=== PATIENT | female | born 2000 | race African-American/Black ===

== ENCOUNTER → 2024-12-25 08:19 | Outpatient (BNVA) | payer OTHER, SELFPAY | PROVIDERS: Visit Provider Internal Medicine | DX: S93.402A Sprain of unspecified ligament of left ankle, initial encounter (principal); S70.11XA Contusion of right thigh, initial encounter; W10.8XXA Fall (on) (from) other stairs and steps, initial encounter | CPT/HCPCS: 73610; 73630; 99202 ==

== ENCOUNTER → 2024-12-31 12:15 | Outpatient (BNVA) | payer OTHER, SELFPAY | PROVIDERS: Visit Provider Physician Assistant Medical | DX: S93.402A Sprain of unspecified ligament of left ankle, initial encounter (principal); S70.11XA Contusion of right thigh, initial encounter; W10.8XXA Fall (on) (from) other stairs and steps, initial encounter | CPT/HCPCS: 99213 ==

== ENCOUNTER → 2025-01-13 13:30 | Outpatient (BNVA) | payer OTHER, SELFPAY | PROVIDERS: Visit Provider Physician Assistant Medical | DX: S93.402D Sprain of unspecified ligament of left ankle, subsequent encounter (principal); S70.11XD Contusion of right thigh, subsequent encounter; W10.8XXD Fall (on) (from) other stairs and steps, subsequent encounter | CPT/HCPCS: 99213 ==

== ENCOUNTER 2025-02-12 09:20 | Outpatient (AMB) | payer OTHER, SELFPAY ==
--- NOTE | 2025-02-12 09:21 | A.OFFVIS_ITS ---
Intake Visit Reasons: FC-Lt ankle sprain DOI: 12/23/24 Intake Note: Desiree is a 24 year old female who presents today for an ER follow up of left ankle sprain, DOI 12/23/24. Patient was seen at work connection status post fall down 2 steps at work. She was referred to physical therapy but states that she has not started. At her appointment with the work connection they gave her a ankle air cast but she did not feel comfortable enough to continue use. Patient states that she has a constant numbness and tingling and the pain is radiating up into the calf. Patient reports that she was given NSAIDs but no relief. Allergies No Known Allergies Allergy (Verified 02/12/25 09:27) Medication List - Last Reconciled 02/12/25 by Bennie Beard PA-C ibuprofen 800 mg PO TID PRN HPI HPI FC-Lt ankle sprain DOI: 12/23/24: Details: 24 yo female presents tot he office today for an injury she sustained to the left ankle while at work on 12/23/2024 while she was walking down the stairs and fell. She was seen at the work connection where x-rays were obtained which were negative for a fracture. She was placed in an Aircast and referred to ortho for eval. She states she wore the Aircast for approximately 1 or 2 days and removed it. She has not done physical therapy. 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 She continues to have discomfort especially with ambulation. She feels as though the ankle is unstable. Review of Systems Const All systems reviewed & are unremarkable except as noted in HPI and below Physical Exam Const General: cooperative and no acute distress Orientation/consciousness: patient oriented x3 Resp Effort & Inspection: normal respiratory effort and able to speak in complete sentences Cardio Peripheral pulses: Peripheral pulses 2+ throughout Neuro General: patient oriented x3 Extrem Other: Inspection. No significant swelling. She has tenderness over the ATFL and t alus. Mild discomfort with ROM and inversion/eversion. NVI. Assessment & Plan Assessment & Plan (1) Left ankle sprain: Code(s): S93.402A - Sprain of unspecified ligament of left ankle, initial encounter Category: Medical (2) Bone bruise: Code(s): T14.8XXA - Other injury of unspecified body region, initial encounter Category: Medical Plan We discussed options today which includes a tall boot weightbearing as tolerated to help take stress off of her bone contusion. She states she has pain with every step she takes so the boot will help to absorb that impact. She should wear the boot at all times while ambulating. She can remove for sleeping resting and hygiene. I also placed an order for physical therapy to work on r samantha of motion gentle strengthening proprioceptive training. I explained to the patient bone bruising can typically take 3-6 months for resolution. She will work with sedentary limitations. No pushing pulling or carrying greater than 5 lb and no prolonged standing. She will see me back in 6 weeks for re- evaluation, sooner if needed. Orders: Orders PT Evaluation and Treatment Today S93.402A - Sprain of unspecified ligament of left ankle, initial encounter, T14.8XXA - Other injury of unspecified body region, initial encounter Coding Level of Care Code New Pt Level 3 (08855) Complex EM visit Add On G2211 Diagnoses Left ankle sprain S93.402A Bone bruise T14.8XXA
--- OUTSIDE RECORDS SUMMARY | 2025-02-12 09:38 | XMS_ITS | Clinical Summary ---
Author Organization [facility] Address [address] [place] [address] Care Team Providers Care Joss House Keeper Name Role Phone Unavailable Primary Care Provider Unavailabl e Source Comments PLEASE NOTE, if this patient is a minor, it may be UNLAWFUL to discuss sensitive information that is contained in these records (such as FAMILY PLANNING, MENTAL HEALTH or SUBSTANCE ABUSE) with the minor patient's parent or other person without the patient's specific authorization.[facility] Social History Tobacco Use Types Packs/Day Years Used Date Smoking Tobacco: Never Assessed Social Connections Answer Date Recorded Connectedness 0 04/20/2024 Financial Resource Strain Answer Date R ecorded Financial Resource Strain 0 2021 Stress Answer Date Recorded Stress 0 06/29/2022 Physical Activity Answer Date Recorded Physical Activity 0 06/29/2022 Food Insecurity Answer Date Recorded Food 0 05/02/2024 Transportation Needs Answer Date Record ed Transportation 0 06/29/2022 Housing Stability Answer Date Recorded Housing 0 06/29/2022 Safety and Environment Answer Date Tavo rded Safety 0 06/29/2022 Utilities Answer Date Recorded Utilities 0 06/29/2022 Employment Answer Date Recorded Stress 0 04/20/2024 Comments Unknown Sex and Gender Information Value Date Recorded Sex Assigned at Not on file Legal Sex Female 8:09 AM PST Gender Identity Not on file Sexual Orientation Not on file Plan of Treatment Health Maintenance Due Date Last Done Comments Anxiety Screening 1998 HPV Screening 1998 Hepatitis C Screening 1998 Pap + HPV 1998 Tobacco Screening 1998 HIV Screening 2013 Imm-HPV (1 - 3-dose series) 2013 Relationship Safety Screening/Counseling 2013 Hypertension Screening (#1) 2016 Imm-DTaP/Tdap/Td (1 - Tdap) 2017 Imm-Hepatitis B (1 of 3 - 19+ 3-dose series) 7 Cervical Cancer Screening 2019 Pap Smear 2019 [id number] (2023- season) 2024 Alcohol and Drug Screen 08/07/2024 Depression Annual Screen 08/07/2024 Imm-Influenza (Season Ended) 2025 Cervical Ablation/Cold-Knife Conization Discontinued Cervical Cryotherapy Discontinued Colposcopy Discontinued Endometrial Biopsy Discontinued Excision/Leep Discontinued HPV Genotyping Discontinued Vaginal Pap Discontinued Vulvoscopy Discontinued
== END 2025-02-12 10:40 | disposition home or self-care (01) ==
LOC: HO.HOS 09:20
PROVIDERS: Visit Provider Physician Assistant
DX: S93.402A Sprain of unspecified ligament of left ankle, initial encounter (principal); T14.8XXA Other injury of unspecified body region, initial encounter
CPT/HCPCS: 99203; G2211

== ENCOUNTER → 2025-02-12 09:20 | Outpatient (BNVA) | payer OTHER, SELFPAY | PROVIDERS: Visit Provider Physician Assistant | DX: M25.572 Pain in left ankle and joints of left foot (principal); R20.0 Anesthesia of skin; R20.2 Paresthesia of skin; S93.402A Sprain of unspecified ligament of left ankle, initial encounter; T14.8XXA Other injury of unspecified body region, initial encounter | CPT/HCPCS: 99202 ==

== ENCOUNTER 2025-03-31 14:44 | Outpatient (AMB) | payer OTHER, SELFPAY ==
--- NOTE | 2025-03-31 14:54 | MHC.OFFVIS ---
Vital Signs 03/31/25 14:57 Height 5 ft 2 in Weight 190 lb BMI 34.7 Intake Visit Reasons: OV-Lt ankle sprain WC DOI: 12/23/24 Intake Note: Desiree is a 24 year old female who presents today for a follow up of her workers comp injury to left ankle, DOI 12/23/24. At her last visit she was instructed to follow up in 6 weeks for a re-evaluation. Patient reports that she is doing well, states no pain a the moment. She does at home exercises and uses a machine that performs massages on her legs which provides her with support. Her current work restrictions or sedentary limitations- no pushing, pulling, or carrying greater than 5 lbs. No prolong standing. Allergies No Known Allergies Allergy (Verified 03/31/25 15:01) HPI HPI OV-Lt ankle sprain WC DOI: 12/23/24: Details: 24-year-old female returns to the office today for a follow-up left ankle sprain date of injury 12/23/2024. The patient states she has completed physical therapy and she has improvement in her symptoms. The only time she has discomfort is if she is standing for a prolonged period of time. Review of Systems Const All systems reviewed & are unremarkable except as noted in HPI and below Physical Exam Vital Signs: BMI result Body Mass Index 34.7 Const General: cooperative and no acute distress Orientation/consciousness: patient oriented x3 Resp Effort & Inspection: normal respiratory effort and able to speak in complete sentences Cardio Peripheral pulses: Peripheral pulses 2+ throughout Neuro General: patient oriented x3 Extrem Other: Inspection. No significant swelling. No tenderness over the ATFL and talus. No discomfort with ROM and inversion/eversion. NVI. Assessment & Plan Assessment & Plan (1) Left ankle sprain: Code(s): S93.402A - Sprain of unspecified ligament of left ankle, initial encounter Category: Medical Plan: The patient will increase activities as tolerated. I did review some exercises she can work on at home to alleviate some of her discomfort with prolonged standing which may be due to fatigue muscles. She can return to work without limitations and she will follow up as needed. Coding Level of Care Code Est Pt Level 3 (20923) Complex EM visit Add On G2211 Diagnoses Left ankle sprain S93.402A
[2025-03-31 14:57] VITALS: BMI 34.7
--- OUTSIDE RECORDS SUMMARY | 2025-03-31 16:25 | XMS_ITS | Clinical Summary ---
Author Organization [facility] Address [address] [place] [address] Care Team Providers Care It Security Consultant Name Role Phone Unavailable Primary Care Provider [...] Cervical Cancer Screening 2019 Pap Smear 2019 [id number] (2023- season) 2024 Alcohol and Drug Screen 08/07/2024 Depression Annual Screen 08/07/2024 Imm-Influenza (#1) 2025 Cervical Ablation/Cold-Knife Conization Discontinued Cervical Cryotherapy Discontinued Colposcopy Discontinued Endometrial Biopsy Discontinued Excision/Leep Discontinued HPV Genotyping Discontinued Vaginal Pap Discontinued Vulvoscopy Discontinued
== END 2025-03-31 15:27 | disposition home or self-care (01) ==
LOC: HO.HOS 14:44
PROVIDERS: Visit Provider Physician Assistant
DX: S93.402A Sprain of unspecified ligament of left ankle, initial encounter (principal)
CPT/HCPCS: 99213; G2211

== ENCOUNTER → 2025-03-31 14:44 | Outpatient (BNVA) | payer OTHER, SELFPAY | PROVIDERS: Visit Provider Physician Assistant | DX: M25.572 Pain in left ankle and joints of left foot (principal); S93.402D Sprain of unspecified ligament of left ankle, subsequent encounter | CPT/HCPCS: 99212 ==